=== PATIENT | female | born 1970 | race Caucasian/White ===

== ENCOUNTER 2017-05-11 20:49 | Emergency (ER) | payer MEDICAID ==
[~2017-05-11] VITALS: Ht 165.1 cm; Wt 81.0 kg
[~2017-05-11 20:49] MED LIST: GABA300C10 PO; GABA600T2 PO; METHODONE PO; THYR30TA PO
[2017-05-11] MEDS ORDERED: ONDANSETRON 2MG/ML, 2ML IVPush ONE (21:30)
[2017-05-11] MEDS ORDERED: SODIUM CHLORIDE 0.9% 1,000ML IVBOLUS ONE (21:30)
[2017-05-11 22:08] LABS: ASPARTATE AMINO TRANSFERASE 15 U/L (15-37); BLOOD UREA NITROGEN 19 mg/dL (7-18)
[2017-05-11 23:15] LABS: PATH.CAST-FLAG NOT PRESENT; SPERM-FLAG NOT PRESENT; SRC-FLAG NOT PRESENT; XTAL-FLAG NOT PRESENT; YLC-FLAG NOT PRESENT
[2017-05-11 23:16] LABS: HCG UR OBC PASS
[2017-05-11 23:43] VITALS: BP 132/88
[2017-05-11] MEDS ORDERED: ONDANSETRON 2MG/ML, 2ML ONE (23:55)
[2017-05-11] MEDS ORDERED: ZIPRASIDONE 20 MG INJ IM ONE (23:55)
[2017-05-12] MEDS ORDERED: ZIPRASIDONE 20 MG INJ IM ONE
[2017-05-12] MEDS ORDERED: ONDANSETRON 2MG/ML, 2ML IVPush ONE
== END 2017-05-12 01:35 | disposition home or self-care (01) ==
LOC: ED 21:57
DX: R11.2 Nausea with vomiting, unspecified (principal); R19.7 Diarrhea, unspecified; F11.23 Opioid dependence with withdrawal; Z90.49 Acquired absence of other specified parts of digestive tract
CPT/HCPCS: 36415; 80053; 81001; 81025; 83690; 84443; 85025; 96361; 96372; 96374; 96375; 99285; J2405; J3486; J7030